=== PATIENT | female | born 1995 | race Caucasian/White ===

== ENCOUNTER 2023-07-12 07:08 | Emergency (ER) | payer BC ==
[~2023-07-12] VITALS: Ht 162.6 cm; Wt 110.8 kg
[2023-07-12 07:17] VITALS: BP 113/78; PULSE 87; RESP 20; TEMP 98.5; O2SAT 99
[2023-07-12] MEDS: KETOROLAC 60 MG/2 ML VIAL IM ONE (08:04)
[2023-07-12] MEDS ORDERED: PRED20TA5 PO (08:05)
[2023-07-12] MEDS ORDERED: IBUP-2213 PO (08:05)
[2023-07-12 08:14] VITALS: BP 113/78; PULSE 87; RESP 20; TEMP 98.5; O2SAT 99
== END 2023-07-12 08:13 | disposition home or self-care (01) ==
LOC: MED 07:08
DX: H92.02 Otalgia, left ear (principal); J06.9 Acute upper respiratory infection, unspecified
CPT/HCPCS: 96372; 99283; J1885